=== PATIENT | male | born 1975 | race Two or more races ===

== ENCOUNTER 2018-05-09 07:00 | Inpatient (IN) | payer OTHER ==
[~2018-05-09] VITALS: Ht 160 cm; Wt 74.8 kg
[~2018-05-09 07:00] MED LIST: Dexamethasone 4mg/ml vial ONE; IBUPROFEN600 M1 PO; Lidocaine 1% MPF 10mg/ml 5ml ONE; Propofol 200mg/20ml IV ONE
[2018-06-13] VITALS (11 sets, daily range): BP systolic 118–169; BP diastolic 75–99
[2018-06-13] MEDS ORDERED: Vancomycin 1 GM in D5W 275 ML IVPB ONE (06:00)
[2018-06-13] MEDS ORDERED: LR 1000ml 1,000 ML IVLG SCH (11:12)
[2018-06-13] MEDS ORDERED: Hydromorphone 0.5mg/0.5ml inj IVP PRN (11:15)
[2018-06-13] MEDS ORDERED: HYDROcodone/Acetamin 7.5/325 tab ORAL PRN (11:15)
[2018-06-13] MEDS ORDERED: Meperidine 50mg/ml Inj(FOR RIGORS ONLY) IVP PRN (11:15)
[2018-06-13] MEDS ORDERED: Norco 5mg/325mg tab ORAL PRN (11:15)
[2018-06-13] MEDS ORDERED: LORazepam Inj 2mg/ml 1ml IV PRN (11:15)
[2018-06-13] MEDS ORDERED: Ketorolac 30mg Inj IV PRN ×2 (11:15)
[2018-06-13] MEDS ORDERED: oxyCODONE HCL/Acetaminophen 5/325mg ORAL PRN (11:15)
[2018-06-13] MEDS ORDERED: Acetaminophen (Non formulary) 100 ML IV ONE (11:15)
[2018-06-13] MEDS ORDERED: Midazolam 2mg/2ml Inj IVP PRN (11:15)
[2018-06-13] MEDS ORDERED: fentaNYL 100 mcg/2 mL IV PRN (11:15)
[2018-06-13] MEDS ORDERED: Lidocaine 1% MPF 10mg/ml 5ml ONE (11:15)
[2018-06-13] MEDS ORDERED: Sodium Chloride 10ml vial INJ ONE (11:15)
[2018-06-13] MEDS ORDERED: Lidocaine 1% Plain 30 ml INJ ONE ×3 (11:15→15:42)
[2018-06-13] MEDS ORDERED: Metoclopramide 10mg/2ml Inj IVP PRN ×2 (11:15→20:30)
[2018-06-13] MEDS ORDERED: DiphenhydrAMINE 50mg/ml Inj IVP PRN (11:15)
[2018-06-13] MEDS ORDERED: Dexamethasone 4mg/ml vial ONE (11:15)
[2018-06-13] MEDS ORDERED: Labetalol 5mg/ml 20ml vial IV PRN (11:15)
[2018-06-13] MEDS ORDERED: Atropine Sulfate 0.4mg/ml inj IVP PRN (11:15)
[2018-06-13] MEDS ORDERED: fentaNYL 100 mcg/2 mL IV ONE ×3 (11:16→17:22)
[2018-06-13] MEDS ORDERED: Vancomycin 1gm inj IVPB ONE ×2 (11:38→17:54)
[2018-06-13] MEDS ORDERED: Gelfoam Size TOPIC ONE (11:39)
[2018-06-13] MEDS ORDERED: Thrombin 5000 units spray kit TOPIC ONE (11:39)
[2018-06-13] MEDS ORDERED: Lidocaine 1% 10mg/ml/Epi 0.005mg/ml 30ml vial INJ ONE (11:39)
[2018-06-13] MEDS ORDERED: Bupivacaine 0.5% Inj 30 ml vial INJ ONE (11:39)
[2018-06-13] MEDS ORDERED: Thrombin 5000 units TOPIC ONE (11:39)
[2018-06-13] MEDS ORDERED: Bacitracin 50000 Units Vial ONE (11:40)
[2018-06-13] MEDS ORDERED: Gelfoam Absorbable 1gm powder pkt TOPIC ONE (11:40)
[2018-06-13] MEDS ORDERED: Dyna-Hex 2% Top Sol 2oz TOPIC ONE (11:40)
[2018-06-13] MEDS ORDERED: Sterile Water Irrig 1000ml IRRIG ONE (12:00)
[2018-06-13] MEDS ORDERED: LR 1000ml ONE (12:00)
[2018-06-13] MEDS ORDERED: Propofol 1,000mg/ 100ml btl IV ONE (12:00)
[2018-06-13] MEDS ORDERED: NS Irrig 1000ml ONE (12:00)
--- NOTE | 2018-06-13 12:01 | Pre-Procedure Note/Attestation ---
Pre-Procedure Note/Attestation Complete Prior to Procedure Planned Procedure: bilateral Procedure Narrative: L4/4 L5/S1 anterior and posterior decompression fusion and instramentation Indications for Procedure Pre-Operative Diagnosis: Herniated disk and instibility L4/5 L5/S1 Attestation I attest that I discussed the nature of the procedure; its benefits; risks and complications; and alternatives (and the risks and benefits of such alternatives ), prior to the procedure, with the patient (or the patient's legal sales support representative). I attest that, if there was a reasonable possibility of needing a blood transfusion, the patient (or the patient's legal sales support representative) was given the [place] Department [employer] standardized written summary, pursuant to the [place] Blood Safety Act ([place] Health and Safety Code # 1645, as amended). I attest that I re-evaluated the patient just prior to the surgery and that there has been no change in the patient's H&P, except as documented below: Yan Sultana MD Jun 13, 2018 12:01
[2018-06-13] MEDS ORDERED: Zemuron 50mg/5ml Inj IV ONE (12:14)
--- NOTE | 2018-06-13 12:36 | Anethesia Preoperative Eval ---
Anesthesia Pre-op PMH/ROS General Date of Evaluation: Jun 13, 2018 Time of Evaluation: 12:11 Anesthesiologist: Parish ASA Score: ASA 2 Mallampati Score Class I : Soft palate, uvula, fauces, pillars visible Class II: Soft palate, uvula, fauces visible Class III: Soft palate, base of uvula visible Class IV: Only hard plate visible Mallampati Classification: Class II Surgeon: Kayy Diagnosis: Back Pain Surgical Procedure: PSF L5-S1ALIF L4-5, L5-S1 Family History: no anesthesia problems Allergies: Coded Allergies: No Known Allergies (Unverified , 05/08/18) Medications: see eMAR Past Medical History Cardiovascular: Reports: other - HL Neurologic/Psychiatric: Reports: depression/anxiety Anesthesia Pre-op Phys. Exam Physician Exam Last Vital Signs Date Time Temp Pulse Resp B/P (MAP) Pulse Ox O2 Delivery O2 Flow Rate FiO2 06/13/18 11:57 97.5 67 18 118/75 (89) 97 97.5 06/13/18 11:47 Room Air Constitutional: NAD Neurologic: CN 2-12 intact Cardiovascular: RRR Respiratory: CTA Gastrointestinal: S/NT/ND Airway Exam Mallampati Score: Class II MO: full ROM: full Teeth: intact Anesthesia Pre-op A/P Risk Assessment & Plan Assessment: ASA 2 Plan: GA, SED, GlideScope Go Status Change Before Surgery: No Pre-Antibiotics Dru Grams Ancef IV Given Within 1 Hr of Incision: Yes Time Given: 12:41 Gregory Frye MD Jun 13, 2018 12:36
[2018-06-13] MEDS ORDERED: Heparin 5000 units/ml inj ONE (13:13)
[2018-06-13] MEDS ORDERED: ePHEDrine 50mg/ml Inj ONE (14:32)
[2018-06-13] MEDS ORDERED: Bupivacaine w/Epi 0.25% 30ml Vial INJ ONE (16:00)
--- NOTE | 2018-06-13 16:40 | Immediate Post-Op Evaluation ---
Immediate Post-Op Evalulation Immediate Post-Op Evalulation Procedure: PSF L4-S1, ALIF L4-5, L5-S1 Date of Evaluation: Jun 13, 2018 Time of Evaluation: 18:49 IV Fluids: 1000 LR Blood Products: 0 Estimated Blood Loss: 100 Urinary Output: 300 Blood Pressure Systolic: 137 Blood Pressure Diastolic: 82 Pulse Rate: 104 Respiratory Rate: 16 O2 Sat by Pulse Oximetry: 99 Temperature (Fahrenheit): 98.2 Pain Score (1-10): 3 Nausea: No Vomiting: No Complications 0 Patient Status: awake, reacts, patent, extubated, none Hydration Status: adequate Dru Grams Ancef IV Given Within 1 Hr of Incision: Yes Time Given: 12:41 Gregory Frye MD Jun 13, 2018 16:40
--- NOTE | 2018-06-13 18:31 | Brief Operative Note ---
Immediate Post Operative Note Operative Note Pre-op Diagnosis: Herniated disk and instibility L4/5 L5/S1 Procedure: anterior and posterior decompression fusion and instramentation Post-op Diagnosis: same as pre op Post-op Diagnosis: same as pre-op Surgeon: lizeth diaz on anterior Anesthesia: general Specimen: none Complications: none Condition: stable Fluids: 1000 cc Estimated Blood Loss: minimal Drains: none Packing: none Implant(s) used?: Yes Yan Sultana MD Jun 13, 2018 18:31
[2018-06-13] MEDS ORDERED: Naloxone 0.4mg/ml Inj IVP PRN (20:30)
[2018-06-13] MEDS ORDERED: HYDROmorphone 1mg/ml Carpuject SUBQ PRN (20:30)
[2018-06-13] MEDS: ceFAZolin sod 1 GM in D5W 55 ML IV SCH (20:58)
[2018-06-13] MEDS: D5 1/2NS w/KCl 20mEq 1,000 ML IV SCH (20:58)
[2018-06-14] VITALS: BP 122/74
--- NOTE | 2018-06-14 02:30 | Operative Note - Dictated ---
DATE OF OPERATION: 06/13/2018 HISTORY: This is a pleasant 43-year-old male. PREOPERATIVE DIAGNOSES: 1. L4-L5 and L5-S1 herniated nucleus pulposus. 2. L4-L5 and L5-S1 instability. 3. L4-L5 and L5-S1 aggressive Modic changes. POSTOPERATIVE DIAGNOSES: 1. L4-L5 and L5-S1 herniated nucleus pulposus. 2. L4-L5 and L5-S1 instability. 3. L4-L5 and L5-S1 aggressive Modic changes. FINDINGS: Severe instability at L4-L5 and L5-S1, significant gross motion, and large osteophytes surrounding L4-L5. ESTIMATED BLOOD LOSS: 50 mL. COMPLICATIONS: None. PROCEDURE: 1. Anterior L4-L5 and L5-S1 decompression. This included complete diskectomies at both levels with decompression of the spinal canal and neurologic structures as well as decompression of the nerve roots bilaterally at both levels. 2. Anterior interbody fusion at L4-L5 and L5-S1 using a distraction arthrodesis technique to further open up the neuroforamen. 3. Insertion of a PEEK cage. 4. Plating at L4-L5 and L5-S1 with stabilization. 5. Intraoperative use of fluoroscopy. 6. Use of local bone graft. 7. Use of demineralized bone matrix. SURGEON: Yan Sultana M.D. CO-SURGEON ON FUSION: Kemal Geronimo M.D., who assisted on the other procedures. ANESTHESIA: General with endotracheal intubation. ANESTHESIOLOGIST: . DESCRIPTION OF PROCEDURE: Under general anesthesia with endotracheal intubation, the patient was placed in the supine position on the operating table. Abdomen was then prepped and draped in the usual manner. Dr. Geronimo then made a retroperitoneal approach to lumbosacral spine through a paramedial incision, and he will dictate that under separate heading. We approached L4-L5 first lateral to the great vessels. Once Dr. Geronimo exposed this, I then incised the annulus with a knife, the endplates with an endplate separator, and then removed the disk with a variety of pituitary rongeurs. Wedge-shaped distractors were inserted to open up the interspace. The disk was removed back to posterior longitudinal ligament. Endplates were further curetted back to bleeding bone. Local bone was harvested off the endplates. Posterior longitudinal ligament was taken down. The spinal canal was decompressed. The neurologic structures were decompressed. Once this was completed, I then picked a 13 mm cage 15-degree angle packed with demineralized bone matrix and local bone and then packed that into position under fluoroscopic control and direct vision. A plate was affixed to the anterior part of the cage. Two screws were then inserted in the body of L4 and two in the body of L5 locking the cage plate combination into position. We then went down to L5-S1 to the great vessels. Dr. Geronimo once again exposed the L5-S1 disk space. I incised the annulus with a knife, the endplates with an endplate separator, and removed the disk with a variety pituitary rongeurs. Wedge-shaped distractors were used to open up the interspace. The disk was removed back to posterior longitudinal ligament. Posterior longitudinal ligament was taken down. The canal was decompressed. The neurologic structures were decompressed. A 15 mm with high 15-degree cage was then selected. It was packed with demineralized bone matrix and local bone. A plate was affixed to the anterior part of the cage. This was gently tapped into position under fluoroscopic control and direct vision. Two screws were then put into the body of L5, two in the body of S1 and just as we did at L4-L5, a locking cap was then inserted and appropriately torqued over the top of it. Hemostasis was achieved. The wound was then closed in layers. Sterile dressings were applied and the patient was prepared to be flipped to the prone position. Yan Sultana MD DR: MARYLOU JOB#: [id number] CC:
--- NOTE | 2018-06-14 02:30 | Operative Note - Dictated ---
DATE OF OPERATION: 06/13/2018 VASCULAR SURGEON: Kemal Geronimo M.D. SPINE SURGEON: Yan Sultana M.D. PREOPERATIVE DIAGNOSIS: Degenerative disk disease. POSTOPERATIVE DIAGNOSIS: Degenerative disk disease. PROCEDURES PERFORMED: 1. Anterior retroperitoneal exposure of L4-L5 vertebral interspace. 2. Anterior retroperitoneal exposure of L5-S1 vertebral interspace. INDICATIONS: The patient is a very pleasant gentleman who was seen in our office prior to surgery. He has been made aware of the risks of vascular surgery, possibility vascular injury, deep venous thrombosis, and bleeding complications were described. DESCRIPTION OF FINDINGS: A low vertical midline incision was used. A left retroperitoneal approach was used. There was no peritoneal or ureteral violation. There was no vascular injury. Exposure of L4-L5 obtained first by retraction of left common iliac artery and vein towards the patient's right. The iliolumbar veins were successfully ligated proximally and distally as were the L4 segmental vessels. L5-S1 was obtained by retraction of left common iliac artery and vein towards the patient's left. There was somewhat larger internal iliac vein branch coming off the proximal left common iliac vein that was successfully ligated with vascular clips prior to division. On completion, there were palpable femoral pedal pulses. Pulse oximetry is normal on the left foot. Blood loss was approximately 100 mL for anterior portion of the case. DESCRIPTION OF PROCEDURE: The patient was taken to the operating room. General anesthesia was used. IV antibiotics were given. The patient's abdomen was prepped and draped. Appropriate time-out for procedure was taken. A low vertical midline incision was made infraumbilically. The anterior fascia was incised longitudinally midline. A plane was identified posterior to the left rectus abdominis and developed posterolaterally towards the patient's left. The retroperitoneal space was bluntly entered below the arcuate line. The peritoneum and ureter were mobilized towards the patient's right exposing the left common iliac artery and vein. Dissection was carried on the lateral to the left common iliac artery and vein overlying lymphatics were ligated with vascular clips. The iliolumbar vein was identified. It was noted to be two paired iliolumbar veins. They were successfully ligated using a 2-0 silk ligature proximally, and then vascular clips were used to ligate the branches distally. The L4 segmental artery and vein were also discretely dissected and ligated with vascular clips prior to division. This allowed us to retract the left common iliac artery and vein towards the patient's right and exposing anterior surface of L4-L5. The Omni retractor was set in place. Fluoroscopy used to confirm the appropriate level and then instrumentation performed at L4-L5 dictated separately. The retractor was then repositioned below the iliac bifurcation. The middle sacral artery and vein were ligated with vascular clips. There are a number of small branches coming off of the left common iliac vein. These were ligated with vascular clips prior to division. The flap then retracted the left common iliac artery and vein superiorly and exposed the anterior surface of the L5-S1. Once again, the Omni retractor was used for retraction. Fluoroscopy was used to confirm the appropriate level. Then, instrumentation was performed at L5-S1 as dictated separately. On completion, retractor was gently removed. The peritoneum and ureter were intact. The iliac vessels were intact. Anterior fascia was then closed using #1 PDS in running fashion, and then skin and subcutaneous tissue were closed with 3-0 Vicryl and 4-0 Monocryl running subcuticular closure technique. ESTIMATED BLOOD LOSS: Less than 100 mL. COMPLICATIONS: None. Kemal Geronimo M.D. DR: RALPH JOB#: [id number] CC:
--- NOTE | 2018-06-14 03:15 | Operative Note - Dictated ---
DATE OF OPERATION: 06/13/2018 PREOPERATIVE DIAGNOSES: 1. L4-5 and L5-S1 herniated nucleus pulposus. 2. L4-5 and L5-S1 instability. 3. L4-5 and L5-S1 Modic changes. POSTOPERATIVE DIAGNOSES: 1. L4-5 and L5-S1 herniated nucleus pulposus. 2. L4-5 and L5-S1 instability. 3. L4-5 and L5-S1 Modic changes. ESTIMATED BLOOD LOSS: 10 mL. COMPLICATIONS: None. PROCEDURE: 1. Posterior L4 to the sacrum bilateral segmental instrumentation. 2. Posterior L4-5 and L5-S1 bilateral lateral fusion. 3. Intraoperative use of fluoroscopy. 4. Use of local bone graft. 5. Use of demineralized bone matrix. SURGEON: Yan Sultana M.D. ANESTHESIA: General with endotracheal intubation. ANESTHESIOLOGIST: PROCEDURE: Under general anesthesia with endotracheal intubation, the patient was placed in the prone position on the table. His back was then prepped and draped in the usual manner. The C-arm was pulled into position. The pedicles at L4 and S1 were then identified bilaterally. A Jamshidi needle was then directed towards the pedicles first at L4 bilaterally. A guidewire was then passed through each of these Jamshidi. A transverse incision was made. Dilators were then passed over the guidewire and under the fluoroscopic control and direct vision, the pedicle screws at L4 were tapped. 6.5 outer diameter screws were used, they were 40 millimeters long. Each screw was tested to greater than 10, and was negative. We then moved down to S1. Spinal needles were placed. The location of the needle was examined fluoroscopically. Transverse incisions were made. Jamshidis were passed into the S1 pedicles using a modified Horacio technique. A guidewire was then placed through the Jamshidi. Jamshidi was then removed. Dilators were placed over the guidewires bilaterally. The holes were tapped and then on the left, we used a 45 millimeter long 6.5 outer diameter screw on the right. A 40 millimeter long screw was used, 6.5 outer diameter. Once the screws were seated well, the aaron distance was measured, measured 65 millimeter, 65 millimeter aaron was then passed percutaneously. Setscrews were inserted and the rods were then tightened, then torqued appropriately. The facets were debrided. Local bone was packed in the facets bilaterally. This was supplemented with demineralized bone matrix. Prior to putting the bone graft, the wounds were copiously irrigated. All screws were tested and were negative to at least ___. The wounds were closed in layers using 2-0 for fascia and 2-0 for subcuticular closure. Sterile dressings were applied and the patient was then transferred to recovery room and judged to be in stable condition and neurologically unchanged. Yan Sultana MD DR: YANCY JOB#: [id number] CC:
[2018-06-14] MEDS: ceFAZolin sod 1 GM in D5W 55 ML IV SCH ×2 (04:14→13:33)
[2018-06-14] MEDS: Vancomycin 1 GM in D5W 275 ML IVPB SCH ×2 (05:11→18:19)
[2018-06-14] MEDS: D5 1/2NS w/KCl 20mEq 1,000 ML IV SCH ×2 (06:57→18:25)
--- NOTE | 2018-06-14 07:15 | Orthopedic Spine Progress Note ---
Ortho Spine - Progress Note Subjective Symptoms: c/o post-op back pain, improved - as compared to pre-op Objective Vital Signs: Last 24 Hour Vital Signs Date Time Temp Pulse Resp B/P (MAP) Pulse Ox O2 Delivery O2 Flow Rate FiO2 06/14/18 00:00 98.2 103 16 122/74 (90) 96 98.2 06/13/18 23:00 Nasal Cannula 3.0 06/13/18 20:29 98.4 119 16 142/91 (108) 95 98.4 06/13/18 19:27 98 104 18 142/89 95 Nasal Cannula 3 98.0 06/13/18 19:15 116 17 145/99 97 Nasal Cannula 3 06/13/18 19:10 112 18 169/95 100 Nasal Cannula 3 06/13/18 19:00 96 15 129/87 100 Nasal Cannula 3 06/13/18 18:55 103 13 139/93 100 Nasal Cannula 3 06/13/18 18:45 109 14 151/95 100 Nasal Cannula 3 06/13/18 18:40 111 18 132/88 100 Simple Mask 6 06/13/18 18:38 98.2 102 21 138/84 100 Simple Mask 6 98.2 06/13/18 18:38 208.8 104 16 99 06/13/18 11:57 97.5 67 18 118/75 (89) 97 97.5 06/13/18 11:51 97.5 67 18 118/75 (89) 97 97.5 06/13/18 11:47 Room Air I&O: Intake and Output 06/13/18 06/14/18 19:00 07:00 Intake Total 1000 ml 300 ml Output Total 450 ml 500 ml Balance 550 ml -200 ml Intake IV Total 1000 ml 300 ml Output Urine Total 350 ml 500 ml Estimated Blood Loss 100 ml # Voids 1 # Bowel Movements 1 Wound: clean, dry, intact Drains: none Assessment Post-op Diagnosis: same as pre op Procedure Performed: anterior and posterior decompression fusion and instramentation Plan Plan: continue antibiotics, discharge plan Yan Sultana MD Jun 14, 2018 07:15
[2018-06-14 07:34] LABS: BASOPHILS % (AUTO) 0.3 % (0.0-2.0); HEMATOCRIT 45.1 % (42.0-52.0); HEMOGLOBIN 15.5 G/DL (14.2-18.0); LYMPHOCYTES % (AUTO) 7.6 % (20.0-45.0); MEAN CORPUSCULAR VOLUME 90 FL (80-99); MONOCYTES % (AUTO) 7.5 % (1.0-10.0); NEUTROPHILS % (AUTO) 84.6 % (45.0-75.0); PLATELET COUNT 220 K/UL (150-450); RED BLOOD COUNT 5.01 M/UL (4.70-6.10); RED CELL DISTRIBUTION WIDTH 11.1 % (11.6-14.8); WHITE BLOOD COUNT 12.1 K/UL (4.8-10.8)
[2018-06-14 08:00] VITALS: BP 125/76
--- NOTE | 2018-06-14 11:40 | 48 Hour Post Anesthesia Eval ---
Post Anesthesia Evaluation Procedure: PSF L4-S1, ALIF L4-5, L5-S1 Date of Evaluation: Jun 14, 2018 Time of Evaluation: 11:37 Blood Pressure Systolic: 124 0: 62 Pulse Rate: 68 Respiratory Rate: 20 Temperature (Fahrenheit): 97.6 O2 Sat by Pulse Oximetry: 98 Airway: patent Nausea: No Vomiting: No Pain Intensity: 3 Hydration Status: adequate Cardiopulmonary Status: stable Mental Status/LOC: patient returned to baseline Follow-up Care/Observations: n/a Post-Anesthesia Complications: none Follow-up care needed: N/A Gonzalo Kuhn MD Jun 14, 2018 11:40
[2018-06-14 12:00] VITALS: BP 123/74
[2018-06-14 16:00] VITALS: BP 110/70
--- NOTE | 2018-06-14 19:46 | Cardiology Progress Note ---
Assessment/Plan Assessment/Plan [id number] dvt ppx await passing gas bm ivf ambualte as allowed post op Objective Last 24 Hour Vital Signs Date Time Temp Pulse Resp B/P (MAP) Pulse Ox O2 Delivery O2 Flow Rate FiO2 06/14/18 16:00 98.1 74 20 110/70 (83) 99 98.1 06/14/18 12:00 98.1 79 20 123/74 (90) 98 98.1 06/14/18 11:40 207.7 68 20 98 06/14/18 09:00 Room Air 06/14/18 08:00 98.2 77 20 125/76 (92) 96 98.2 06/14/18 00:00 98.2 103 16 122/74 (90) 96 98.2 06/13/18 23:00 Nasal Cannula 3.0 06/13/18 20:29 98.4 119 16 142/91 (108) 95 98.4 Intake and Output 06/13/18 06/14/18 19:00 07:00 Intake Total 1000 ml 300 ml Output Total 450 ml 500 ml Balance 550 ml -200 ml Intake IV Total 1000 ml 300 ml Output Urine Total 350 ml 500 ml Estimated Blood Loss 100 ml # Voids 1 # Bowel Movements 1 Laboratory Tests Test 06/14/18 06:20 White Blood Count 12.1 K/UL (4.8-10.8) H Red Blood Count 5.01 M/UL (4.70-6.10) Hemoglobin 15.5 G/DL (14.2-18.0) Hematocrit 45.1 % (42.0-52.0) Mean Corpuscular Volume 90 FL (80-99) Mean Corpuscular Hemoglobin 30.9 PG (27.0-31.0) Mean Corpuscular Hemoglobin Concent 34.4 G/DL (32.0-36.0) Red Cell Distribution Width 11.1 % (11.6-14.8) L Platelet Count 220 K/UL (150-450) Mean Platelet Volume 7.8 FL (6.5-10.1) Neutrophils (%) (Auto) 84.6 % (45.0-75.0) H Lymphocytes (%) (Auto) 7.6 % (20.0-45.0) L Monocytes (%) (Auto) 7.5 % (1.0-10.0) Eosinophils (%) (Auto) 0.0 % (0.0-3.0) Basophils (%) (Auto) 0.3 % (0.0-2.0) Mau Miguel MD Jun 14, 2018 19:46
[2018-06-14 20:00] VITALS: BP 130/71
[2018-06-14 21:55] VITALS: BP 130/71
[2018-06-15] VITALS: BP 116/69
[2018-06-15 04:00] VITALS: BP 120/74
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
[2018-06-15] MEDS: D5 1/2NS w/KCl 20mEq 1,000 ML IV SCH ×2 (05:28→13:30)
[2018-06-15 08:00] VITALS: BP 131/82
[2018-06-15] MEDS: Hydromorphone 0.5mg/0.5ml inj SUBQ PRN ×2 (11:18→15:26)
[2018-06-15 12:00] VITALS: BP 148/98
[2018-06-15] MEDS ORDERED: VIBRAMYCIN100 MG ORAL (14:58)
[2018-06-15] MEDS ORDERED: NORCO 10-325 T1 EACH ORAL (14:59)
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
== END 2018-06-15 15:45 | disposition home or self-care (01) | DRG 455 ==
LOC: SDSOVERFLO 06-13 11:21 → 3E 06-13 19:43
DX: M51.26 Other intervertebral disc displacement, lumbar region (principal); M53.2X6 Spinal instabilities, lumbar region; M51.27 Other intervertebral disc displacement, lumbosacral region; M53.2X7 Spinal instabilities, lumbosacral region; M25.78 Osteophyte, vertebrae; V49.40XS Driver injured in collision with unspecified motor vehicles in traffic accident, sequela
CPT/HCPCS: 36415; 72020; 76001; 85025; 86850; 86900; 86901; 87081; 94003; 94150; J2405